=== PATIENT | male | born 1995 | race Two or more races ===

== ENCOUNTER 2025-05-31 23:30 | Emergency (ER) | payer OTHER ==
[2025-05-31 23:43] VITALS: TEMP 98; BMI 38.3
[2025-06-01] MEDS ORDERED: ACETAMINOPHEN 325 MG TABLET (FP) ONE (00:03)
[2025-06-01] MEDS ORDERED: ASPIRIN 81 MG CHEWABLE TABLETS ONE (00:03)
[2025-06-01] MEDS: ACETAMINOPHEN 325 MG TABLET (FP) PO ONE (00:05)
[2025-06-01] MEDS: ASPIRIN 81 MG CHEWABLE TABLETS PO ONE (00:05)
[2025-06-01 00:06] LABS: ABSOLUTE IMMATURE GRANULOCYTES 0.01 x10^3/uL (0.0-0.031); BASOPHILS # 0.07 x10^3/uL (0.01-0.08); EOSINOPHIL % 2.2 % (0.8-7.0); EOSINOPHILS # 0.22 x10^3/uL (0.04-0.54); MCHC 33.5 g/dl (32.3-36.5); MEAN CELL VOLUME 86.0 fl (79.0-92.2); MEAN PLT VOLUME 10.7 fl (9.4-12.4); MONOCYTE # 0.42 x10^3/uL (0.30-0.82); MONOCYTE % 4.2 % (5.3-12.2); RDW 13.2 % (11.9-15.3)
[2025-06-01 00:15] LABS: INR 1.05 (0.83-1.09); PROTHROMBIN TIME (PATIENT) 11.4 SEC (9.7-13.0)
[2025-06-01 00:18] LABS: ACTIVATED PTT 31.8 SECONDS (25.2-36.5)
[2025-06-01 00:32] LABS: GLUCOSE,RANDOM 108.0 mg/dL (74-106); TOT PROT 7.0 g/dl (6.4-8.2)
[2025-06-01 00:33] LABS: CO2 24.0 mmol/L (21-32)
[2025-06-01 00:34] LABS: ALK PHOS 76.0 U/L (40-150)
[2025-06-01 00:37] LABS: SGOT/AST 70.0 U/L (5-34); SGPT/ALT 50.0 U/L (0-55)
[2025-06-01 00:38] LABS: CREATININE 1.09 mg/dL (0.55-1.3)
[2025-06-01 01:18] VITALS: BP 127/86; PULSE 57
[2025-06-07 04:11] VITALS: RESP 17
== END 2025-06-01 01:20 | disposition home or self-care (01) ==
LOC: JER 23:30
DX: R07.2 Precordial pain (principal)
CPT/HCPCS: 36415; 71045-TC-FY; 80053; 82962; 83735; 84484; 85025; 85610; 85730; 93005; 93010; 99285-25